=== PATIENT | female | born 1970 | race Caucasian/White ===

== ENCOUNTER 2018-04-02 10:39 | Emergency (ER) | payer OTHER ==
[~2018-04-02 10:39] MED LIST: BUSP5TAB3 PO; LORA-392 PO; TAB-TAB PO; [UNRECOGNIZED DRUG - CODE] PO
[2018-04-02 10:42] VITALS: BP 111/58; PULSE 109; RESP 20; TEMP 98.4; O2SAT 99
[2018-04-02] MEDS ORDERED: BUSP5TAB PO (11:04)
[2018-04-02] MEDS ORDERED: BUTA1TAB30 PO (11:04)
[2018-04-02] MEDS ORDERED: LORA-392 PO (11:04)
[2018-04-02] MEDS ORDERED: CYMB30CA PO (11:04)
[2018-04-02] MEDS ORDERED: VENTAER INH (11:27)
--- NOTE | 2018-04-02 11:29 | PD ---
HPI Chief Complaint: Respiratory Symptoms Time Seen by Provider: 11:17 Travel History International Travel<30 days: No Contact w/Intl Traveler<30days: No Traveled to known affect area: No History of Present Illness HPI The patient was seen and examined in the presence of the nurse. This patient complains of cough and congestion and body aches and general malaise. No documented fever. She is not having chest pain. Symptom severity is moderate. Duration 3 days. PFSH Past Medical History Blood Disorders: No Anxiety: Yes Depression: Yes Heart Rhythm Problems: No Cancer: Yes (SKIN) Cardiac Catheterization: No Cardiovascular Problems: No High Cholesterol: No Congestive Heart Failure: No Diabetes: No Diminished Hearing: No Endocrine: No Genitourinary: No Headaches: Yes Hepatitis: No Hiatal Hernia: No Immune Disorder: No Musculoskeletal: No Neurologic: No Psychiatric: No Reproductive: No Respiratory: No Integumentary: Yes (rosacea?) Migraines: Yes Thyroid Disease: No Tetanus Vaccination: Unknown Influenza Vaccination: Yes ?: Not : 4 Para: 2 Miscarriage: 1 : 1 Tubal Ligation: Yes Past Surgical History Abdominal Surgery: Yes (APPY) AICD: No Appendectomy: Yes Section: Yes (2) Coronary Artery Bypass Graft: No Gynecologic Surgery: Yes (HYSTERECTOMY, C-SECT. X2) Hysterectomy: Yes Joint Replacement: No Pacemaker: No Thoracic Surgery: Yes (LUMPECTOMY RIGHT BREAST) Other Surgery: Yes Family History Family Myocardial Infarction: Yes Social History Alcohol Use: Yes ("very little") Tobacco Use: No (vapes occasionaly quit smoking 2008) Substance Use: No Allergies-Medications (Allergen,Severity, Reaction): Coded Allergies: cephalexin (Verified Allergy, Mild, HIVES, 04/02/18) Reported Meds & Prescriptions Reported Meds & Active Scripts Active Ventolin Hfa 18 GM Inh (Albuterol Sulfate) 90 Mcg/Act Aer 1 Puff INH Q4H PRN Reported Buspirone (Buspirone HCl) 5 Mg Tab 5 Mg PO TID Cymbalta DR (Duloxetine HCl) 30 Mg Capdr 30 Mg PO BID Butalbital-Acetaminophen 50-325 Mg Tab 1-2 Tab PO Q4HR PRN Do not exceed 6 tablets per day. Ativan (Lorazepam) 0.5 Mg Tab 0.5 Mg PO DAILY PRN Review of Systems General / Constitutional: No: Fever HENT: No: Headaches Respiratory: Positive: Cough Gastrointestinal: No: Vomiting Physical Exam Narrative GENERAL: Well-nourished, well-developed patient. SKIN: Focused skin assessment warm/dry. HEAD: Normocephalic. EYES: No scleral icterus. No injection or drainage. NECK: Supple, trachea midline. No JVD or lymphadenopathy. CARDIOVASCULAR: Regular rate and rhythm without murmurs, gallops, or rubs. RESPIRATORY: Breath sounds equal bilaterally. No accessory muscle use. GASTROINTESTINAL: Abdomen soft, non-tender, nondistended. MUSCULOSKELETAL: No cyanosis, or edema. BACK: Nontender without obvious deformity. No CVA tenderness. Data Data Last Documented VS Vital Signs Date Time Temp Pulse Resp B/P (MAP) Pulse Ox O2 Delivery O2 Flow Rate FiO2 04/02/18 11:00 20 99 Room Air 04/02/18 10:42 98.4 109 111/58 (75) MDM Medical Decision Making Medical Screen Exam Complete: Yes Emergency Medical Condition: Yes Medical Record Reviewed: Yes Differential Diagnosis Bronchitis, pneumonia, URI Narrative Course I have reviewed the patient's electronic medical record. Presentation most consistent with acute viral bronchitis. I do not see indication for antibiotics. Supportive care discussed. She is concerned about her dry hacking cough. I prescribed her an albuterol inhaler to try. She quit smoking 9 years ago Diagnosis Primary Impression: Acute viral bronchitis Additional Instructions: The patient was advised to follow up with their physician and return if they worsen. Med/Other Pt SpecificInfo: Prescription(s) given Scripts Albuterol 18 GM Inh (Ventolin Hfa 18 GM Inh) 90 Mcg/Act Aer 1 PUFF INH Q4H Y for SHORTNESS OF BREATH, #1 INHALER 0 Refills Prov: Ze Duque MD 04/02/18 Disposition: 01 DISCHARGE HOME Condition: Stable Ze Duque MD April 02, 2018 11:29
== END 2018-04-02 11:44 | disposition home or self-care (01) ==
LOC: PHED 10:39
DX: J20.8 Acute bronchitis due to other specified organisms (principal); F41.9 Anxiety disorder, unspecified; F32.9 Major depressive disorder, single episode, unspecified; Z88.8 Allergy status to other drugs, medicaments and biological substances; Z79.51 Long term (current) use of inhaled steroids; Z87.891 Personal history of nicotine dependence; Z79.899 Other long term (current) drug therapy
CPT/HCPCS: 99283